=== PATIENT | male | born 1980 | race Two or more races ===

== ENCOUNTER 2023-12-28 13:33 | Emergency (ER) | payer OTHER ==
[~2023-12-28] VITALS: Ht 177.8 cm; Wt 96.0 kg
[2023-12-28 14:21] VITALS: PULSE 97; RESP 12; O2SAT 95
[2023-12-28 14:32] VITALS: TEMP 98
[2023-12-28 16:00] VITALS: BP 142/92; PULSE 100; RESP 15; O2SAT 93
== END 2023-12-28 21:40 ==
LOC: EDBD 13:33 → ER 13:33
DX: S62.101A Fracture of unspecified carpal bone, right wrist, initial encounter for closed fracture (principal); I10 Essential (primary) hypertension; F17.210 Nicotine dependence, cigarettes, uncomplicated; F12.10 Cannabis abuse, uncomplicated; F15.10 Other stimulant abuse, uncomplicated; X83.8XXA Intentional self-harm by other specified means, initial encounter; Y93.89 Activity, other specified; Y92.89 Other specified places as the place of occurrence of the external cause; Y99.8 Other external cause status
CPT/HCPCS: 29125; 36415; 73130; 80320